=== PATIENT | female | born 1940 | race Caucasian/White ===

== ENCOUNTER → 2016-05-24 | Day surgery (SDC) | payer MEDICARE ==
[~2016-05-24] MED LIST: ASPIRIN325 M1 PO; ASPIRIN81 M1 PO; ASPIRIN81 M2 PO; CEPHALEXIN500 M1 PO; HYZAAR 50-12.51 TA1 PO; HYZAAR 50-12.51 TAB PO; LIPITOR20 MG PO; NORVASC PO; PROZAC PO
--- NOTE | ~2016-05-24 | OR ---
Unit #: [id number] #: [id number] Patient: URI ZHANG [id number] [address] [address] [id number] O MR#: [id number] NAME: URI ZHANG. ROOM: Date of Procedure: 05/24/2016 Admission Date: 05/24/2016 Surgeon: Nick Villarreal M.D. : 1940 Attending Physician: Nick Villarreal M.D. Primary Care Physician: Charlie Hemphill M.D. [facility]ENTER OPERATIVE NOTE PROCEDURE PERFORMED Lumbar epidural steroid injection under x-ray guided needle placement with provider administered conscious sedation. PREOPERATIVE DIAGNOSES 1. Acute lumbar radiculitis. 2. Spinal stenosis, lumbosacral spine. 3. Herniated disk, lumbosacral spine multiple levels. 4. Degenerative joint disease, lumbosacral spine. 5. Degenerative disk disease, lumbosacral spine. 6. Facet arthrosis, multiple levels. INDICATIONS FOR PROCEDURE The patient presents today with a several months long history of acute lumbar radicular pain, which has been intermittent in nature, but over the past 2 to 3 months, it become chronic. It is crescendo in nature and has negatively impact her activities of daily living to the point that she is unable to walk for very great distances. After discussing risks and benefits of proceeding today with a lumbar approach epidural steroid injection, the patient agreed this would be appropriate course of action. This was after review of the patient's MRI report, which showed multiple-level disease consistent with the previously mentioned diagnoses. DESCRIPTION OF PROCEDURE Ms. Zhang upon arrival in the operating room was prepped and draped in a sterile manner. Standard monitors were applied and she was sedated with 2 mg of IV Versed. Lumbar epidural space accessed at the L4-L5 level using loss of resistance technique and x-ray guidance. Needle placement was confirmed with injection of 2 mL of Omnipaque. There was good superior and inferior flow at this L4-L5 needle placement. Following successful needle placement confirmation, the patient received an injectate containing 4 mL normal saline, 2 mL of 0.25% bupivacaine, and 80 mg of methylprednisolone. She tolerated this procedure well. She was discharged home with followup instructions, which include return to this clinic on 06/05/2016, at that point, she will most likely receive a repeat lumbar epidural steroid injection utilizing a dual needle technique with the access points of L5-S1 and L3-L4. Dictated by... Beth Puentes/glenda Unit #: [id number] #: [id number] Patient: URI ZHANG TD: 05/24/2016 22:43 JOB #: [id number] CC: Bud Diggs M.D. [facility]ENTER OPERATIVE NOTE Page 1 of 1 X Jamie Villarreal MD X PROCEDURE OPERATIVE NOTE
== END | disposition home or self-care (01) ==
LOC: CCSC 08:04
DX: M51.17 Intervertebral disc disorders with radiculopathy, lumbosacral region (principal); M48.07 Spinal stenosis, lumbosacral region
CPT/HCPCS: J1040; J2250

== ENCOUNTER → 2016-06-05 | Day surgery (SDC) | payer MEDICARE ==
--- NOTE | ~2016-06-05 | OR ---
Unit #: [id number] #: [id number] Patient: URI ANAND [id number] [address] [address] [id number] O MR#: [id number] NAME: URI ANAND. ROOM: Date of Procedure: 06/05/2016 Admission Date: 06/05/2016 Surgeon: Nick Villarreal M.D. : 1940 Attending Physician: Nick Villarreal M.D. Primary Care Physician: Charlie Hemphill M.D. [facility] CENTER OPERATIVE NOTE PROCEDURE PERFORMED Lumbar epidural steroid injection under x-ray guided needle placement with provider administered conscious sedation. PREOPERATIVE DIAGNOSES 1. Acute lumbar radiculitis. 2. Spinal stenosis, lumbosacral spine. 3. Herniated disk, L3-L4. 4. Herniated disk, L4-L5. 5. Herniated disk, L5-S1. 6. Degenerative joint disease, lumbosacral spine. 7. Degenerative disk disease, lumbosacral spine. 8. Facet arthrosis, lumbosacral spine. 9. Facet arthralgia, lumbosacral spine. INDICATIONS FOR PROCEDURE The patient presents today status post one previous L4-L5 lumbar approach epidural steroid injection for an acute radiculitis, which had failed to respond to conservative therapy. She states she got good results with almost 100% relief initially, however, over the course of the ensuing time since her first visit, she had a return of symptomatology to the point that she is desirous of a second epidural steroid injection. After discussing risks and benefits of proceeding today with an L5-S1 and L3-L4 dual needle access technique, the patient agreed this would be the appropriate course of action. DESCRIPTION OF PROCEDURE She was then taken to the operating room, where she was prepped and draped in a sterile manner. Standard monitors were applied. She was sedated with 2 mg of IV Versed and lumbar epidural space was accessed at the L5-S1 and L3-L4 levels using loss of resistance technique and x-ray guidance. Needle placement was confirmed with injection of 2 mL of Omnipaque at each needle placement location. There was good superior and inferior flow at each needle placement location. Total x-ray time for this dual needle placement was 7 seconds. Following successful needle placement confirmation, the patient received an injectate containing 4 mL of normal saline and 40 mg of methylprednisolone at each level for a total injected volume of 8 mL of normal saline and 80 mg of methylprednisolone. She tolerated this procedure well. She was discharged home with followup instructions, which include return to this clinic as early as 09/11/2016 if we could be of further service to her. She was instructed if she is asymptomatic at that time to simply not keep that appointment and to follow up with this clinic and/or her referring provider at such point as Unit #: [id number] #: [id number] Patient: URI ANAND we could be of further service to her. Dictated by... Beth Puentes/glenda TD: 06/06/2016 01:31 JOB #: [id number] [facility] OPERATIVE NOTE Page 1 of 1 X Jamie Villarreal MD X PROCEDURE OPERATIVE NOTE
== END | disposition home or self-care (01) ==
LOC: CCSC 08:53
DX: M51.17 Intervertebral disc disorders with radiculopathy, lumbosacral region (principal); M47.27 Other spondylosis with radiculopathy, lumbosacral region; M48.07 Spinal stenosis, lumbosacral region; Z87.01 Personal history of pneumonia (recurrent); Z90.710 Acquired absence of both cervix and uterus; Z95.0 Presence of cardiac pacemaker; Z95.5 Presence of coronary angioplasty implant and graft; Z98.51 Tubal ligation status; Z98.890 Other specified postprocedural states
CPT/HCPCS: J1040; J2250

== ENCOUNTER → 2016-07-31 | Day surgery (SDC) | payer MEDICARE ==
--- NOTE | ~2016-07-31 | OR ---
Unit #: [id number] #: [id number] Patient: URI ANAND [id number] [address] [place], [place] [address] [id number] O MR#: [id number] NAME: URI ANAND. ROOM: Date of Procedure: 07/31/2016 Admission Date: 07/31/2016 Surgeon: Nick Villarreal M.D. : 1940 Attending Physician: Jamie Villarreal Primary Care Physician: Charlie Hemphill M.D. [facility] CENTER OPERATIVE NOTE PROCEDURE PERFORMED Lumbar epidural steroid injection under x-ray guided needle placement with provider administered conscious sedation. PREOPERATIVE DIAGNOSES 1. Acute lumbar radiculitis. 2. Spinal stenosis. 3. Herniated disk, multiple levels. 4. Degenerative joint disease, multiple levels. 5. Degenerative disk disease. INDICATIONS FOR PROCEDURE The patient presents today with longstanding history of chronic lumbar radicular pain secondary to her underlying degenerative processes. She is generally fairly well managed medically, but does occasionally experience exacerbations, which cause her pain to break through her ongoing continuous conservative measures, which include medications and self-directed exercise. The patient presents today having just such an exacerbation. Her general amount of relief with these epidural steroid injections are approximately 50% for permanent relief with the initial series and now she gets anywhere from 50% to 70% additional above that for total benefit of approximately 80% for 8 to 10 weeks. She presents today as stated before having just such an exacerbation similar to past and compatible with her x-ray studies. After discussing risks and benefits of proceeding today with a lumbar approach epidural steroid injection with the possibility of utilizing a dual needle technique, the patient agreed this would be the appropriate course of action. DESCRIPTION OF PROCEDURE She was then taken to the operating room, where she was prepped and draped in a sterile manner. Standard monitors were applied. She was sedated with 2 mg of IV Versed and lumbar epidural space was accessed at the L5-S1 level using loss of resistance technique and x-ray guidance. Needle placement was confirmed with injection 2 mL of Omnipaque. Approximately 90% of dye flow was in the inferior direction. Therefore, second needle access was accomplished at the L3-L4 level using again loss of resistance technique and x-ray guidance. Again, needle placement was confirmed with injection of 2 mL of Omnipaque. Again, the dye flow was approximately 90% inferior and 10% superior. We got good L4 coverage, which was our primary desired goal; however, there are L2-L3 and higher level, so at next visit, we will most likely do an L4, L2, L3 access points, but returning to the procedure, following successful needle placement confirmation which required a total x-ray time of 6 seconds, the patient received an Unit #: [id number] #: [id number] Patient: URI ANAND injectate containing 4 mL normal saline and 40 mg of methylprednisolone at the L3-L4 and the L5-S1 levels for a total injectate volume of 8 mL normal saline and 80 mg of methylprednisolone. She tolerated this procedure well. She was discharged home with followup instructions, which include an offer to return to this clinic as early as 11/01/2016 if we could be of further service to her. Dictated by... Beth Puentes/glenda TD: 07/31/2016 22:52 JOB #: [id number] [facility] OPERATIVE NOTE Page 1 of 1 X Jamie Villarreal MD X PROCEDURE OPERATIVE NOTE
== END | disposition home or self-care (01) ==
LOC: CCSC 12:26
DX: G89.29 Other chronic pain (principal); M51.16 Intervertebral disc disorders with radiculopathy, lumbar region; M48.06 Spinal stenosis, lumbar region; M47.26 Other spondylosis with radiculopathy, lumbar region; I25.10 Atherosclerotic heart disease of native coronary artery without angina pectoris; K21.9 Gastro-esophageal reflux disease without esophagitis; Z87.01 Personal history of pneumonia (recurrent); Z95.5 Presence of coronary angioplasty implant and graft; Z95.0 Presence of cardiac pacemaker; Z79.82 Long term (current) use of aspirin; Z79.899 Other long term (current) drug therapy; Z98.51 Tubal ligation status; Z90.710 Acquired absence of both cervix and uterus
CPT/HCPCS: J1040; J2250